=== PATIENT | female | born 1990 | race Caucasian/White ===

== ENCOUNTER → 2022-08-07 16:58 | Outpatient (CLI) | payer OTHER, MEDICAID, SELFPAY ==
--- NOTE | 2022-08-07 | DI.US.S_ITS ---
PROCEDURE: US SOFT TISSUE HEAD AND NECK INDICATIONS: RIGHT PALPABLE NECK LUMP TECHNIQUE: Real-time scanning was performed of the neck region of interest, with image documentation. COMPARISON: None. FINDINGS: Multiple grayscale color Doppler images of the neck were acquired targeting the patient directed palpable area of concern. Inferior to the region of the right submandibular gland, there are prominent right-sided lymph nodes with the largest measuring approximately 2.9 x 1.7 x 0.6 cm. Cortex is prominent measuring 5.5 mm in thickness. There is preservation of central fatty hilum. For comparison, the left neck was imaged demonstrating multiple prominent but normal appearing lymph nodes with the largest measuring 2.3 x 0.9 x 0.4 cm. Incidental note of nonspecific hyperechoic rings with mild posterior shadowing within the soft tissues superior to the thyroid gland. No internal vascularity. IMPRESSION: 1. Palpable area of concern in the right neck correlates with a probable mildly reactive right submandibular lymph node. No suspicious mass lesion seen. Recommend continued clinical surveillance with follow-up imaging as needed. 2. Incidental note of nonspecific 1.0 cm echogenic ring-like focus in the soft tissues of the left neck superior to the thyroid gland possibly representing soft tissue calcifications within cartilage. No vascularity seen. Consider soft tissue neck radiographic series to evaluate for presence of soft tissue calcifications in this region. Dictated by: Shahram Zelaya M.D. on 08/08/2022 at 12:41 Approved by: Shahram Zelaya M.D. on 08/08/2022 at 12:48
== END ==
PROVIDERS: Referring Provider Naturopath; Visit Provider Naturopath
DX: R22.1 Localized swelling, mass and lump, neck (principal)
CPT/HCPCS: 76536

== ENCOUNTER → 2024-07-08 11:51 | Outpatient (CLI) | payer OTHER, MEDICAID, SELFPAY ==
--- NOTE | 2024-07-08 11:53 | DI.US.S_ITS ---
PROCEDURE: US OB >= 14 WEEKS FETUS INDICATIONS: ANATOMY SCAN OUTSIDE/PRIOR DATING DATA: Last menstrual period (LMP): 11/22/2023. LMP-based estimated date of delivery (ANICETO): 08/28/2024. First dating scan (date and location): Not applicable Estimated date of delivery (ANICETO) from first dating scan: Not applicable. The calculations are made using the working ANICETO of 08/28/2024. TECHNIQUE: Real-time scanning was performed of the fetus, with image documentation and biometric measurements. Endovaginal scanning: No COMPARISON: None. FINDINGS: General: A single living intrauterine gestation is present. Presentation: Vertex. Placenta: Placental position is posterior , without previa. Amniotic fluid index: 10.3 cm, normal range is 5-24 cm. Single deepest vertical pocket is 4.1 cm. heart rate: 143 beats per minute. Maternal cervical canal: 3.6 cm long. Normal lower limit is 2.5 cm. biometrics: Biparietal diameter: 8.7 cm, 35 week 0 day Head circumference: 30.8 cm, 34 week 3 day Abdominal circumference: 31.2 cm, 35 week 5 day Femur length: 6.6 cm, 34 week 1 day Clinically estimated gestational age: 32 week 5 day Composite gestational age from present scan: 34 week 6 day Estimated weight and percentile: 2581 g, 96 percentile Visualized anatomy within normal limits. Posterior fossa, ventricular system, cardiac ventricular outflow tracts, left arm not visualized right renal mild caliectasis at 7 mm IMPRESSION: Single live intrauterine consistent with a 34 week 6 day gestation by current ultrasound Mild right renal caliectasis measures 7 mm Approved by: Carroll Barker M.D. on 07/08/2024 at 16:17
== END ==
PROVIDERS: Referring Provider Nurse Practitioner Obstetrics & Gynecology; Visit Provider Nurse Practitioner Obstetrics & Gynecology
DX: O09.33 Supervision of pregnancy with insufficient antenatal care, third trimester (principal); Z3A.34 34 weeks gestation of pregnancy
CPT/HCPCS: 76811

== ENCOUNTER → 2024-12-10 13:49 | Outpatient (CLI) | payer OTHER, SELFPAY ==
--- NOTE | 2024-12-10 13:54 | DI.US.S_ITS ---
PROCEDURE: US SOFT TISSUE HEAD AND NECK INDICATIONS: RIGHT SUBMANDIBULAR LUMP TECHNIQUE: Real-time scanning was performed of the neck region of interest, with image documentation. COMPARISON: [facility], [place], US SOFT TISSUE HEAD AND NECK, 08/07/2022, 17:14. FINDINGS: The patient reported a right submandibular lump for approximately 10 years duration. Targeted ultrasound to the area of current clinical concern reveals 2 lymph nodes the largest of which measures 0.7 x 1.7 x 2.3 cm with a 3.2 mm cortex. IMPRESSION: 2 separate lymph nodes cause the area of current clinical concern, with normal morphology and given reported 10 year chronicity of the clinical palpable abnormality benign etiology is presumed. Continued clinical follow-up is anticipated. Dictated by: Angel Devries M.D. on 12/11/2024 at 12:33 Approved by: Angel Devries M.D. on 12/11/2024 at 12:35
--- NOTE | 2024-12-10 13:55 | DI.US.S_ITS ---
PROCEDURE: US ABDOMEN LIMITED INDICATIONS: PALPABLE LUMP MID BACK TECHNIQUE: Real-time focused scanning was performed of the abdomen, with image documentation. COMPARISON: None. FINDINGS: The patient reports 2 years duration of the palpable lump mid back area, and sonographic assessment shows a fatty structure measuring up to 1.6 x 6.1 x 6.7 cm without elevated internal or peripheral vascularity, consistent with body wall lipoma. 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 Dictated by: Angel Devries M.D. on 12/11/2024 at 12:36 Approved by: Angel Devries M.D. on 12/11/2024 at 12:37
== END ==
PROVIDERS: PCP Naturopath; Referring Provider Naturopath; Visit Provider Naturopath
DX: R59.0 Localized enlarged lymph nodes (principal); R22.2 Localized swelling, mass and lump, trunk
CPT/HCPCS: 76536; 76705